=== PATIENT | female | born 1980 | race Caucasian/White ===

== ENCOUNTER 2021-04-01 20:40 | Emergency (ER) | payer OTHER, SELFPAY ==
[2021-04-01 20:50] VITALS: BP 175/118; PULSE 105; RESP 20; TEMP 36.2; O2SAT 98; BMI 17.9
--- NOTE | 2021-04-01 20:55 | DI.RAD.S_ITS ---
PROCEDURE: XR SHOULDER LT MIN 2V INDICATIONS: helped push car out of ditch, felt pop TECHNIQUE: 3 views of the shoulder were acquired. COMPARISON: None. FINDINGS: Bones: No fractures or dislocations. No suspicious bony lesions. Visualized ribs appear intact. Soft tissues: No suspicious soft tissue calcifications. IMPRESSION: No acute fracture. No osseous lesion. If symptoms and/or clinical suspicion for pathology persist, further assessment with repeat, or advanced imaging (e.g., CT, MRI, or bone scan) may be helpful for further assessment. Dictated by: Griselda Dee M.D. on 04/01/2021 at 21:21 Approved by: Griselda Dee M.D. on 04/01/2021 at 21:21
--- NOTE | 2021-04-01 20:56 | DI.RAD.S_ITS ---
PROCEDURE: XR CLAVICLE LT INDICATIONS: pushed car out of ditch, felt pop TECHNIQUE: 2 views of the clavicle were acquired. COMPARISON: None. FINDINGS: Bones: No fractures or dislocations. No suspicious bony lesions. Soft tissues: No suspicious soft tissue calcifications. IMPRESSION: No acute fracture. No osseous lesion. If symptoms and/or clinical suspicion for pathology persist, further assessment with repeat, or advanced imaging (e.g., CT, MRI, or bone scan) may be helpful for further assessment. Dictated by: Griselda Dee M.D. on 04/01/2021 at 21:20 Approved by: Griselda Dee M.D. on 04/01/2021 at 21:21
--- NOTE | 2021-04-01 21:07 | PC.NURSE ---
Pt states she has multiple issues with the nerves on the L side of her body especially in her back, neck, and face. She reports that her left side occasionally becomes discolored and cold. After she helped push a car today and felt a pop in that L shoulder she states that she was afraid to move it then that she couldn't move it. Muscles engage in her L arm when the elbow is dependently moved. Able to move fingers. Dulled sensation to arm. L arm is cold and purple. is aware. Pt has been to [facility]
--- NOTE | 2021-04-01 21:56 | ED_ITS ---
HPI - Extremity Injury (Upper) General Chief Complaint: Extremity Injury, Upper Stated Complaint: LEFT SHOULDER INJURY Time Seen by Provider: 04/01/21 21:41 Source: patient Mode of arrival: Ambulatory History of Present Illness HPI narrative: Patient here with significant other. Complains of left upper shoulder neck and chest pain. Patient was helping pushing truck. [place] immediate pain pop tearing sensation in left scapular and neck area. [place] cold sensation to her left arm. Has history of do tearing cervical spine. Has numbness tingling to the arm as well. Cold sensation to the left arm and hand. Patient states shoulder joint does not hurt. It hurts more in the trapezius and scapular and left neck area. No prior surgery to the neck. No dyspnea. No active chest pain. Related Data Allergies Allergy/AdvReac Type Severity Reaction Status Date / Time NSAIDS (Non-Steroidal Allergy Anaphylaxis Verified 04/01/21 21:01 Anti-Inflamma Opioids - Morphine Analogues Allergy Anaphylaxis Verified 04/01/21 21:01 Review of Systems Review of Systems Narrative: GENERAL: Denies chills, fatigue, malaise, fever, sweats. HEENT: Denies sinus pain, ear pain, sore throat RESPIRATORY: Denies dyspnea, cough CARDIOVASCULAR: Denies chest pain, palpitations GASTROINTESTINAL: Denies nausea, vomiting, abdominal pain : Denies dysuria, frequency, hematuria MUSCULOSKELETAL: Complains of muscle or bony pain SKIN: Denies rash, skin lesions NEUROLOGIC: Complains weakness, numbness ROS Unobtainable: All systems reviewed & are unremarkable except as noted in HPI and below Patient History Social History Smoking Status: Never smoker Smoking Status: Never smoker alcohol intake frequency: 0-2 drinks per day Substance Use Type: does not use Exam Narrative Exam Narrative: GENERAL: in no distress, not toxic not dyspneic HEAD: Normocephalic. EYES: Pupils equal round No scleral icterus. No injection no discharge ENT: Mucous membranes moist. NECK: Trachea midline. Reproducible left paracervical muscle tenderness with limited range of motion due to neck pain. No midline tenderness or step-off. CARDIOVASCULAR: Regular rate and rhythm without murmurs RESPIRATORY: Clear to auscultation. Breath sounds equal bilaterally. No wheezes, rales, or rhonchi. EXTREMITIES: No gross deformities. Left upper extremity warm soft and pink with strong radial pulse. Patient has weak real estate asset manager. Patient states tingling to the fingers on palpation. Deltoid nontender. Sensation intact to deltoid. Shoulder joint no gross deformity nontender. Patient states feels too weak to move her arm. BACK: No flank tenderness. There is tenderness and spasm to the left trapezius muscle. No crepitus on the skin. No crepitus on the chest NEURO: AOx4. SKIN: Warm and dry PSYCH: Not anxious, is cooperative Initial Vital Signs Initial Vital Signs: Vital Signs Temperature 97.1 F L 04/01/21 20:50 Pulse Rate 105 H 04/01/21 20:50 Respiratory Rate 20 04/01/21 20:50 Blood Pressure 175/118 H 04/01/21 20:50 Pulse Oximetry 98 04/01/21 20:50 Course Course Course Narrative: Symptoms improving during course of stay. Pain improved with Tylenol. Orders Ordered: ED Orders 04/01/21 20:55 XR shoulder LT min 2V Stat 04/01/21 20:56 XR clavicle LT Stat 04/01/21 21:55 CT angio chest Stat 04/01/21 21:56 XR cervical spine 2V or 3V Stat 04/01/21 22:13 Complete Blood Count AUTO DIFF Stat Comprehensive Metabolic Panel Stat Test Serum,Qual Stat Discontinued Medications Acetaminophen (Acetaminophen 325 Mg Tablet) 650 mg PO NOW ONE Stop: 04/01/21 22:05 Last Admin: 04/01/21 22:21 Dose: 650 mg Documented by: MILAD Diphenhydramine HCl (Diphenhydramine 50 Mg/Ml Vial) 25 mg IV NOW ONE Stop: 04/01/21 22:04 Last Admin: 04/01/21 22:21 Dose: 25 mg Documented by: MILAD Sodium Chloride (Normal Saline 0.9%) 500 mls @ 1,000 mls/hr IV BOLUS ONE Stop: 04/01/21 22:24 Last Infusion: 04/01/21 23:30 Dose: 0 mls/hr Documented by: Admin: 04/01/21 22:22 Dose: 1,000 mls/hr Documented by: MILAD Reevaluation(s) Reevaluation #1: Patient feeling much better after treatment. Tylenol given. Patient continues to smile. Reviewed results with patient and understands symptoms/injury from tonight hand results of exam/imaging. Patient and partner desire discharge home. They do not want any prescriptions. She desires to continue with Tylenol home. She states she has too many allergies to medications. Time: 23:30 Vital Signs Vital signs: Vital Signs - 8 hr 04/01/21 20:50 04/01/21 23:42 Temperature 97.1 F L Pulse Rate 105 H 80 Respiratory Rate 20 18 Blood Pressure 175/118 H 147/86 H Pulse Oximetry 98 100 MDM - Extremity Injury (Upper) Differential Diagnosis Differential diagnosis: Likely other (Cervical radiculopathy) Lab Data Result diagrams: 04/01/21 22:13 04/01/21 22:13 Labs: Lab Results 04/01/21 04/01/21 04/01/21 Range/Units 22:13 22:13 22:13 WBC 4.7 (4.5-11.0) X10^3/uL RBC 4.33 (4.0-5.2) X10^6/uL Hgb 13.0 (12.0-16.0) g/dL Hct 38.9 (36-46) % MCV 89.9 (80-100) fL MCH 30.0 (26-34) PG MCHC 33.4 (30-36) % RDW 12.4 (11.6-14.8) % Plt Count 242 (150-400) X10^3/uL Neut % (Auto) 57.5 (50-75) % Lymph % (Auto) 32.8 (25-40) % [place] % (Auto) 7.7 (3-14) % Eos % (Auto) 0.7 L (2-4) % Baso % (Auto) 1.3 (0-2) % Neut # (Auto) 2700 (7428-6323) /uL Lymph # (Auto) 1600 (0849-3798) /uL [place] # (Auto) 400 (0-900) /uL Eos # (Auto) 0 (0-450) /uL Baso # (Auto) 100 (0-100) /uL Sodium 139 (137-145) mmol/L Potassium 3.6 (3.4-5.1) mmol/L Chloride 104 (98-107) mmol/L Carbon Dioxide 30 (22-32) mmol/L BUN 10 (7-17) mg/dL Creatinine 0.48 L (0.52-1.04) mg/dL Estimated GFR > 60.0 (>60) mL/min BUN/Creatinine Ratio 20.8 (6-22) Glucose 91 (70-100) mg/dL Calcium 8.8 (8.4-10.2) mg/dL Total Bilirubin 0.2 (0.2-1.3) mg/dL AST 17 (14-36) IU/L ALT 12 (<35) IU/L Alkaline Phosphatase 41 (38-126) U/L Total Protein 6.6 (6.3-8.2) g/dL Albumin 4.1 (3.5-5.0) g/dL Globulin 2.5 (1.7-4.1) g/dL Albumin/Globulin Ratio 1.6 (1.0-2.8) Serum , Qual Negative (Negative) Imaging Data Extremity x-ray #1: Radiologist's Impression: [address] [id number] ReportSigned Patient: Brandy Bae MMR#: [id number]: 1980Acct:[id number]/Sex: 40 / FDate of Service: 04/01/21Loc: EDAccession Number: [id number] Procedure: XR clavicle LT Ordering Provider: Andrew Timmons MD PROCEDURE: XR CLAVICLE LT INDICATIONS: pushed car out of ditch, felt pop TECHNIQUE: 2 views of the clavicle were acquired. COMPARISON: None. FINDINGS: Bones: No fractures or dislocations. No suspicious bony lesions. Soft tissues: No suspicious soft tissue calcifications. IMPRESSION: No acute fracture. No osseous lesion. If symptoms and/or clinical suspicion for pathology persist, further assessment with repeat, or advanced imaging (e.g., CT, MRI, or bone scan) may be helpful for further assessment. Dictated by: Griselda Dee M.D. on 04/01/2021 at 21:20 Approved by: Griselda Dee M.D. on 04/01/2021 at 21:21 Extremity x-ray #2: Radiologist's Impression: [address] [id number] ReportSigned Patient: Brandy Bae MMR#: [id number]: 1980Acct:[id number]/Sex: 40 / FDate of Service: 04/01/21Lo: EDAccession Number: [id number] Procedure: XR shoulder LT min 2V Ordering Provider: Adnrew Timmons MD PROCEDURE: XR SHOULDER LT MIN 2V INDICATIONS: helped push car out of ditch, felt pop TECHNIQUE: 3 views of the shoulder were acquired. COMPARISON: None. FINDINGS: Bones: No fractures or dislocations. No suspicious bony lesions. Visualized ribs appear intact. Soft tissues: No suspicious soft tissue calcifications. IMPRESSION: No acute fracture. No osseous lesion. If symptoms and/or clinical suspicion for pathology persist, further assessment with repeat, or advanced imaging (e.g., CT, MRI, or bone scan) may be helpful for further assessment. Dictated by: Griselda Dee M.D. on 04/01/2021 at 21:21 Approved by: Griselda Dee M.D. on 04/01/2021 at 21:21 X-ray cervical spine: Radiologist's Impression: [address] [id number] ReportSigned Patient: Brandy Bae MMR#: [id number]: 1980Acct:[id number]/Sex: 40 / FDate of Service: 04/01/21Lo: EDAccession Number: [id number] Procedure: XR cervical spine 2V or 3V Ordering Provider: Andrew Timmons MD PROCEDURE: XR CERVICAL SPINE 2V OR 3V INDICATIONS: Left-sided neck pain TECHNIQUE: 3 view(s) of the cervical spine were acquired. COMPARISON: [facility], , XR CLAVICLE LT, 04/01/2021, 20:50. FINDINGS: Bones: No fractures or dislocations to the T1 level. The lateral masses of C1 appear intact on the odontoid view. No suspicious bony lesions. No acute compression fractures. Straightening of cervical lordosis which may be due to patient positioning and/or concurrent muscle spasms. Multilevel spondylitic changes noted from C3-4 through C5-6. Findings are most pronounced at C5-6. Soft tissues: No prevertebral soft tissue swelling. IMPRESSION: Cervical spine without acute fracture. Multilevel spondylosis most pronounced at C5-6. Mild straightening of normal cervical lordosis likely related to positioning and/or concurrent muscle spasms. Dictated by: Daniel Singer M.D. on 04/01/2021 at 22:44 Approved by: Daniel Singer M.D. on 04/01/2021 at 22:46 CT scan - chest: Radiologist's Impression: [address] [id number] Scan ReportSigned Patient: Brandy Bae MMR#: [id number]: 1980Acct:[id number]/Sex: 40 / FDate of Service: 04/01/21Loc: EDAccession Number: [id number] Procedure: CT angio chest Ordering Provider: Andrew Timmons MD PROCEDURE: CT ANGIO CHEST INDICATIONS: lt side pain TECHNIQUE: After the administration of intravenous contrast, 2 mm thick sections acquired from the pulmonary apices to the posterior costophrenic angles. 3-dimensional maximum intensity projection (MIP) coronal and sagittal reformats were then acquired through the thorax. For radiation dose reduction, the following was used: automated exposure control, adjustment of mA and/or kV according to patient size. COMPARISON: None. FINDINGS: Image quality: Excellent. Pulmonary arteries: Pulmonary arteries are normal in size, and demonstrate no intraluminal filling defects to suggest central pulmonary embolism. Lungs and pleura: Lungs are clear. No pleural effusions or pneumothorax. Central and peripheral airways are patent. Mediastinum: Heart size is normal, without pericardial effusion. No mediastinal or hilar adenopathy. Thoracic aorta is normal in caliber and enhancement. Esophagus is normal in caliber, without hiatal hernia. Bones and chest wall: No suspicious bony lesions. Ribs and thoracic spine appear intact throughout. Thyroid gland is unremarkable. No axillary or supraclavicular adenopathy. Bilateral breast implants are noted. Abdomen: Visualized upper abdominal solid organs appear normal in the early arterial phase of enhancement. IMPRESSION: 1. No acute pulmonary emboli. No evidence for acute right-sided heart strain. 2. No acute cardiopulmonary abnormalities. No acute airspace disease. Dictated by: Daniel Singer M.D. on 04/01/2021 at 22:46 Approved by: Daniel Singer M.D. on 04/01/2021 at 22:53 [facility] Narrative Medical decision making narrative: Appropriate discharge home. Pain controlled. Likely cervical radiculopathy from cervical strain and scapular strain upper back strain. Patient states has history of cervical spine problems. As well as lumbar spine. Return precautions reviewed patient. Exam and imaging otherwise reassuring. Patient does not want any muscle relaxers or pain prescriptions. She desires only to Tylenol. Not toxic at discharge Discharge Plan Departure Patient Disposition: Home Clinical Impression: Cervical radiculopathy Muscle strain of left scapular region Qualifiers: Encounter type: initial encounter Qualified Code(s): S46.912A - Strain of unspecified muscle, fascia and tendon at shoulder and upper arm level, left arm, initial encounter Instructions: DI for Muscle Strain Activity Restrictions/Additional Instructions: See family doctor this week for recheck. May continue Tylenol for pain. Return if worse or any questions or concerns or worsening of any numbness or weakness to the arm or any color change to the arm and hand. Use sling to the left shoulder and arm for comfort
[2021-04-01] MEDS: diphenhydrAMINE 50 MG/ML VIAL 25 MG IV (22:21)
[2021-04-01] MEDS: ACETAMINOPHEN 325 MG TABLET 650 MG PO (22:21)
[2021-04-01] MEDS: SODIUM CHLORIDE 0.9% 500 ML 1000 ML IV (22:22)
[2021-04-01 22:24] LABS: Add Manual Diff / Slide Review NO; Basophils Absolute Auto 100 /uL (0-100); Basophils Percent Auto 1.3 % (0-2); Eosinophils Absolute Auto 0 /uL (0-450); Eosinophils Percent Auto 0.7 % (2-4); Hematocrit 38.9 % (36-46); Lymphocytes Absolute Auto 1600 /uL (1100-4500); Lymphocytes Percent Auto 32.8 % (25-40); Mean Corpuscular HGB Conc 33.4 % (30-36); Mean Corpuscular Volume 89.9 fL (80-100); Monocytes Absolute Auto 400 /uL (0-900); Monocytes Percent Auto 7.7 % (3-14); Neutrophils Absolute Auto 2700 /uL (1500-7000); Neutrophils Percent Auto 57.5 % (50-75); Platelet Count 242 X10^3/uL (150-400); Red Blood Cell Count 4.33 X10^6/uL (4.0-5.2); Red Cell Distribution Width 12.4 % (11.6-14.8); White Blood Cell Count 4.7 X10^3/uL (4.5-11.0)
[2021-04-01 22:41] LABS: Alanine Aminotransferase 12 IU/L (<35); Albumin 4.1 g/dL (3.5-5.0); Albumin Globulin Ratio 1.6 (1.0-2.8); Alkaline Phosphatase 41 U/L (38-126); Aspartate Aminotransferase 17 IU/L (14-36); BUN Creatinine Ratio 20.8 (6-22); Bilirubin Total 0.2 mg/dL (0.2-1.3); Blood Urea Nitrogen 10 mg/dL (7-17); Calcium 8.8 mg/dL (8.4-10.2); Carbon Dioxide 30 mmol/L (22-32); Chloride 104 mmol/L (98-107); Estimated Glomerular Filt Rate > 60.0 mL/min (>60); Globulin 2.5 g/dL (1.7-4.1); Glucose 91 mg/dL (70-100); HEMOLYSIS < 15 (0-50); Potassium 3.6 mmol/L (3.4-5.1); Sodium 139 mmol/L (137-145); Total Protein 6.6 g/dL (6.3-8.2)
[2021-04-01 22:43] LABS: Pregnancy Test Serum,Qual Negative (Negative)
[2021-04-01 23:42] VITALS: BP 147/86; PULSE 80; RESP 18; O2SAT 100
== END 2021-04-01 23:44 | disposition home or self-care (01) ==
PROVIDERS: Emergency Provider Emergency Medicine
DX: M54.12 Radiculopathy, cervical region (principal); S46.912A Strain of unspecified muscle, fascia and tendon at shoulder and upper arm level, left arm, initial encounter; R07.9 Chest pain, unspecified
CPT/HCPCS: 71275; 72040; 73000; 73030; 80053; 84703; 85025; 96361; 96374; 99284; J1200; Q9967